=== PATIENT | male | born 1985 | race African-American/Black ===

== ENCOUNTER 2018-10-09 22:25 | Emergency (ER) | payer OTHER ==
[~2018-10-09] VITALS: Ht 182.9 cm; Wt 112.5 kg
[2018-10-10 00:49] VITALS: BP 143/86
== END 2018-10-10 00:51 | disposition home or self-care (01) ==
LOC: ER 22:25
DX: S61.511A Laceration without foreign body of right wrist, initial encounter (principal); S51.811A Laceration without foreign body of right forearm, initial encounter; Z91.041 Radiographic dye allergy status; W26.8XXA Contact with other sharp object(s), not elsewhere classified, initial encounter; Y93.89 Activity, other specified; Y92.89 Other specified places as the place of occurrence of the external cause; Y99.8 Other external cause status

== ENCOUNTER 2018-10-22 18:56 | Emergency (ER) | payer OTHER ==
[~2018-10-22] VITALS: Ht 182.9 cm; Wt 111.1 kg
[2018-10-22 19:20] VITALS: BP 139/91
== END 2018-10-22 19:20 | disposition home or self-care (01) ==
LOC: ER 18:56
DX: S51.811D Laceration without foreign body of right forearm, subsequent encounter (principal); F17.210 Nicotine dependence, cigarettes, uncomplicated; F10.10 Alcohol abuse, uncomplicated; Z91.041 Radiographic dye allergy status; X58.XXXD Exposure to other specified factors, subsequent encounter